=== PATIENT | male | born 1995 | race Two or more races ===

== ENCOUNTER 2020-07-07 14:00 | Emergency (ER) | payer MEDICAID ==
[~2020-07-07] VITALS: Ht 162.6 cm; Wt 59.0 kg
[~2020-07-07 14:00] MED LIST: AUGMENTIN 875-1 EAC1 ORAL; IBUPROFEN600 MG ORAL; NKM; NORCO 5-325 TA1 EACH ORAL
[2020-07-07 15:16] VITALS: BP 137/84
--- NOTE | 2020-07-07 15:19 | NUR ---
ED Nurse Note:pt. came from home with c/o abdominal pain ,oral bleeding, constipation, blood and urine sent to labs, given IV fluids and meds
[2020-07-07 15:27] LABS: HEMATOCRIT 28.5 % (42.0-52.0); HEMOGLOBIN 10.1 G/DL (14.2-18.0); MEAN CORPUSCULAR VOLUME 115 FL (80-99); PLATELET COUNT 61 K/UL (150-450); RED BLOOD COUNT 2.48 M/UL (4.70-6.10); WHITE BLOOD COUNT 14.2 K/UL (4.8-10.8)
[2020-07-07] MEDS ORDERED: Haloperidol 5mg/ml Inj IM ONE (15:30)
[2020-07-07 15:33] LABS: APPEARANCE,URINE CLEAR; BILIRUBIN, URINE 3+ (NEGATIVE); GLUCOSE, URINE (UA) NEGATIVE (NEGATIVE); KETONES,URINE NEGATIVE (NEGATIVE); LEUKOCYTE ESTERASE ,URINE 1+ (NEGATIVE); NITRITE,URINE NEGATIVE (NEGATIVE); PH,URINE 7 (4.5-8.0); PROTEIN,URINE 1+ (NEGATIVE); UROBILINOGEN,URINE 4 MG/DL (0.0-1.0)
[2020-07-07 15:35] LABS: COLOR,URINE AMBER
[2020-07-07 15:40] LABS: INR 2.9 (0.9-1.1)
[2020-07-07 15:41] LABS: ANION GAP 11 mmol/L (5-15); BLOOD UREA NITROGEN 3 mg/dL (7-18); CALCIUM 8.3 MG/DL (8.5-10.1); CARBON DIOXIDE 23 MMOL/L (21-32); CHLORIDE 98 MMOL/L (98-107); CREATININE 0.5 MG/DL (0.55-1.30); POTASSIUM 3.5 MMOL/L (3.5-5.1); SODIUM 132 MMOL/L (136-145)
[2020-07-07 15:58] LABS: ALANINE AMINOTRANSFERASE 26 U/L (12-78); ALBUMIN 2.1 G/DL (3.4-5.0); ALKALINE PHOSPHATASE 299 U/L (46-116); ASPARTATE AMINO TRANSFERASE 260 U/L (15-37); BILIRUBIN,TOTAL 26.7 MG/DL (0.2-1.0)
[2020-07-07] MEDS ORDERED: Omnipaque-300 100ml vial INJ PRN (16:00)
[2020-07-07 16:04] LABS: BILIRUBIN,DIRECT 22.9 MG/DL (0.0-0.3)
--- NOTE | 2020-07-07 16:14 | NUR ---
ED Nurse Note:covid swab was sent to labs
--- NOTE | 2020-07-07 17:30 | NUR ---
HAND-OFF: Report given to Amada.
--- NOTE | 2020-07-07 17:41 | Emergency Room Report ---
History of Present Illness General Chief Complaint: Abdominal Pain Source: Patient (Trish Dickens) Present Illness HPI 25-year-old male with history of alcohol abuse here complaining of several months of chest pain, shortness of breath, and 2 weeks of constipation, passing gas however feeling constipated. Denies any bloody stools. Patient reports that he has been an alcohol drinker for a long time. Patient appears to be jaundiced and scleral icterus noted. Complains of a minor cough. Reports that he has been nauseated and vomiting a few times without any emesis. Reports that he noticed his gums have been bleeding in the past few weeks. Weeks in full sentences, appears to be oriented. No abdominal distention noted. Denies drug use. Denies fever and chills. (Trish Dickens) Allergies: Coded Allergies: No Known Allergies (Unverified , 02/11/14) COVID-19 Screening Contact w/high risk pt: No Experienced COVID-19 symptoms?: Yes COVID-19 Testing performed INSOLE DOUBLER: No (Trish Dickens) Patient History Past Medical History: see triage record Past Surgical History: none Pertinent Family History: none Immunizations: UTD Reviewed Nursing Documentation: PMH: Agreed; PSxH: Agreed (Trish Dickens) Nursing Documentation-PMH Past Medical History: No History, Except For (Trish Dickens) Review of Systems All Other Systems: negative except mentioned in HPI (Trish Dickens) Physical Exam Vital Signs Date Time Temp Pulse Resp B/P (MAP) Pulse Ox O2 Delivery O2 Flow Rate FiO2 07/07/20 14:15 98.4 123 20 137/84 (101) 98 Room Air Sp02 EP Interpretation: reviewed, abnormal - Tachycardic General Appearance: alert, GCS 15, non-toxic, mild distress Head: normocephalic, atraumatic Eyes: bilateral eye PERRL, bilateral eye scleral icterus ENT: hearing grossly normal, normal pharynx, no angioedema, normal voice Respiratory: chest non-tender, lungs clear, normal breath sounds, no rhonchi, no respiratory distress, no retraction, no accessory muscle use, speaking full sentences Cardiovascular #1: regular rate, rhythm, no edema, no JVD Cardiovascular #2: 2+ carotid (R), 2+ carotid (L), 2+ radial (R), 2+ radial (L), 2+ dorsalis pedis (R), 2+ dorsalis pedis (L) Gastrointestinal: soft, no organomegaly, no bruit, non-distended Rectal: deferred Genitourinary: no CVA tenderness Musculoskeletal: back normal Neurologic: alert, motor strength/tone normal, oriented x3, sensory intact, responsive, speech normal Psychiatric: judgement/insight normal, memory normal, mood/affect normal, no suicidal/homicidal ideation Skin: jaundice Lymphatic: no adenopathy (Trish Dickens) Procedures Critical Care Time Critical Care Time Critical care is managed patient presentation with acute liver failure most likely secondary alcohol with pancreatitis colitis and COVID-19. Critical care time is 40 minutes and excludes procedures (Tashi Haley M.D.) Medical Decision Making PA Attestation All diagnoses and treatment plans were reviewed and discussed with my supervising physician Dr. Haley (Trish Dickens) Diagnostic Impression: Primary Impression: Pancreatitis Additional Impressions: COVID-19 virus infection Cirrhosis Ascites Colitis ER Course 25-year-old male with history of alcohol abuse here complaining of several months of chest pain, shortness of breath, and 2 weeks of constipation, passing gas however feeling constipated. Denies any bloody stools. Patient reports that he has been an alcohol drinker for a long time. Patient appears to be jaundiced and scleral icterus noted. Complains of a minor cough. Reports that he has been nauseated and vomiting a few times without any emesis. Reports that he noticed his gums have been bleeding in the past few weeks. Weeks in full sentences, appears to be oriented. No abdominal distention noted. Denies drug use. Denies fever and chills. Ddx considered but are not limited to: appendicitis, cholecystis, gastritis, gastroentritis, UTI, pyelonephritis, SBO, diverticulitis, influenza with GI manifestation, TN, Vital signs: are WNL, pt. is afebrile H&PE are most consistent with: Pancreatitis, Covid positive ORDERS: abdominal CT, abdominal pain set, EKG, ED INTERVENTIONS: NS bolus, Zofran, Pepcid Patient was admitted with diagnosis of pancreatitis, Covid positive to Dr. Condon under supervision of : Tera pt stable at time of admission (Trish Dickens) ER Course Patient seen and examined by me. This is an unfortunate 25-year-old male with a history of chronic drinking. Presented with abdominal pain nausea and vomiting. Laboratory studies demonstrated evidence of severe cirrhosis with elevation in bilirubin, INR. Patient also had evidence of pancreatitis, colitis and COVID-19 infection. Patient was given IV antibiotics for colitis. As he has a new diagnosis of cirrhosis he will require admission to the hospital for further work-up. Due to insurance patient will be transferred to outside facility for admission. (Tashi Haley M.D.) EKG Diagnostic Results Rate: tachycardiac Rhythm: other - Slightly tachycardic ST Segments: no acute changes Other Impression No acute ST changes ASA given to the pt in ED: No (Trish Dickens) Chest X-Ray Diagnostic Results Chest X-Ray Diagnostic Results : Chest X-Ray Ordered: Yes # of Views/Limited/Complete: 1 View Indication: Shortness of Breath EP Interpretation: Yes PA Xray: Interpretation reviewed, by supervising MD, and agrees with findings. Interpretation: no consolidation, no effusion, no pneumothorax Impression: No acute disease Electronically Signed by: Trish Staples PA-C (Trish Dickens) CT/MRI/US Diagnostic Results CT/MRI/US Diagnostic Results : Imaging Test Ordered: CT abdomen pelvis with contrast Impression COMPARISON: None. FINDINGS: Lung bases: Minimal posterior dependent atelectasis, remainder of the lung bases are normal. Mediastinum: Decompressed stomach with minimal hiatal hernia. ABDOMEN: Liver: Enlargement of the liver with nodular margins suggestive of liver disease and possible early signs of chronic liver disease/cirrhosis. Enlargement of the spleen up to 16.4 cm consistent with splenomegaly. Gallbladder and bile ducts: Contracted gallbladder otherwise unremarkable. No calcified stones. No ductal dilation. Pancreas: Unremarkable. No mass. No ductal dilation. Spleen: See above. Adrenals: Unremarkable. No mass. Kidneys and ureters: Unremarkable. No solid mass. No hydronephrosis. Stomach and bowel: Significant thickening of the wall throughout the colon more severe through the ascending portion suggestive of colitis versus cirrhotic colopathy. The remainder of the colon is decompressed. No obstruction. PELVIS: Appendix: Normal appendix. Bladder: Unremarkable urinary bladder. Reproductive: Unremarkable as visualized. ABDOMEN and PELVIS: Intraperitoneal space: Mild free fluid/ascites in the upper abdomen surrounding the liver and spleen and extending into the paracolic gutters. Mild to moderate free fluid in the pelvis. No free air. Bones/joints: No acute fracture. No dislocation. Soft tissues: Unremarkable. Vasculature: Unremarkable. No abdominal aortic aneurysm. Lymph nodes: Unremarkable. No enlarged lymph nodes. IMPRESSION: 1. Findings suggestive of cirrhosis/chronic liver disease, ascites and splenomegaly. Correlation with liver function tests recommended. 2. Colitis more severe along the right colon versus cirrhotic colopathy. No acute appendicitis or bowel obstruction. (Trish Dickens) Last Vital Signs Date Time Temp Pulse Resp B/P (MAP) Pulse Ox O2 Delivery O2 Flow Rate FiO2 07/07/20 15:16 118 20 Room Air 07/07/20 15:16 98.4 137/84 98 (Trish Dickens) Disposition: SHORT-TERM HOSP Condition: Serious Referrals: [facility],REFERRING (PCP) Trish Dickens Jul 07, 2020 17:41 Tashi Haley M.D. Jul 07, 2020 21:27
--- NOTE | 2020-07-07 18:08 | Diagnostic Imaging Report ---
EXAM: CT Abdomen and Pelvis With Intravenous Contrast CLINICAL HISTORY: PAIN TECHNIQUE: Axial computed tomography images of the abdomen and pelvis with intravenous contrast. CTDI is 4.2 mGy and DLP is 233.7 mGy-cm. One or more of the following dose reduction techniques were used: automated exposure control, adjustment of the mA and/or kV according to patient size, use of iterative reconstruction technique. COMPARISON: None. FINDINGS: Lung bases: Minimal posterior dependent atelectasis, remainder of the lung bases are normal. Mediastinum: Decompressed stomach with minimal hiatal hernia. ABDOMEN: Liver: Enlargement of the liver with nodular margins suggestive of liver disease and possible early signs of chronic liver disease/cirrhosis. Enlargement of the spleen up to 16.4 cm consistent with splenomegaly. Gallbladder and bile ducts: Contracted gallbladder otherwise unremarkable. No calcified stones. No ductal dilation. Pancreas: Unremarkable. No mass. No ductal dilation. Spleen: See above. Adrenals: Unremarkable. No mass. Kidneys and ureters: Unremarkable. No solid mass. No hydronephrosis. Stomach and bowel: Significant thickening of the wall throughout the colon more severe through the ascending portion suggestive of colitis versus cirrhotic colopathy. The remainder of the colon is decompressed. No obstruction. PELVIS: Appendix: Normal appendix. Bladder: Unremarkable urinary bladder. Reproductive: Unremarkable as visualized. ABDOMEN and PELVIS: Intraperitoneal space: Mild free fluid/ascites in the upper abdomen surrounding the liver and spleen and extending into the paracolic gutters. Mild to moderate free fluid in the pelvis. No free air. Bones/joints: No acute fracture. No dislocation. Soft tissues: Unremarkable. Vasculature: Unremarkable. No abdominal aortic aneurysm. Lymph nodes: Unremarkable. No enlarged lymph nodes. IMPRESSION: 1. Findings suggestive of cirrhosis/chronic liver disease, ascites and splenomegaly. Correlation with liver function tests recommended. 2. Colitis more severe along the right colon versus cirrhotic colopathy. No acute appendicitis or bowel obstruction.
--- NOTE | 2020-07-07 19:00 | Diagnostic Imaging Report ---
Indication: Shortness of breath Technique: One view of the chest Comparison: none Findings: Lungs and pleural spaces are clear. Heart size is normal. Impression: No acute process
--- NOTE | 2020-07-07 19:17 | NUR ---
HAND-OFF: Report given to NU Bobby.
--- NOTE | 2020-07-07 19:18 | NUR ---
ED Nurse Note: received report from russell morin.
[2020-07-07 22:04] VITALS: BP 135/82
--- NOTE | 2020-07-08 00:06 | NUR ---
ED Nurse Note: patient picked up by [facility] ambulance and transferred to [facility]. iv and patient id wristband removed. pt left with all belongings. Addendum: 07/08/20 at 0020 by CORINNE report given to russell page at [facility].
[2020-07-08 00:07] VITALS: BP 135/82
--- NOTE | 2020-07-08 15:59 | Cardiology Report ---
APPROVED REPORT EKG Measurement Heart [id number] <Conclusion> Normal sinus rhythm Left ventricular hypertrophy with QRS widening Abnormal ECG
== END 2020-07-08 00:21 | disposition short-term general hospital (02) ==
LOC: EMR 14:53
DX: U07.1 COVID-19 (principal); K85.90 Acute pancreatitis without necrosis or infection, unspecified; K74.60 Unspecified cirrhosis of liver; R18.8 Other ascites; K52.9 Noninfective gastroenteritis and colitis, unspecified; F10.10 Alcohol abuse, uncomplicated
CPT/HCPCS: 36415; 71045; 74177; 80053; 80307; 81003; 82248; 83690; 84484; 85007; 85025; 85610; 85730; 93005; 96361; 96365; 96372; 96375; J1956; J2405; J7030; Q9965; S0028; U0002; Z7502; 99291